=== PATIENT | male | born 1935 | race Caucasian/White ===

== ENCOUNTER 2016-11-25 07:06 | Emergency (ER) | payer MEDICARE ==
[2016-11-25 06:23] LABS: BASOPHILS 0.8 %; BASOPHILS ABSOLUTE 0.04 10/3/uL (0.0-0.16); EOSINOPHILS 1.9 %; ER CBC TAT 0 Hrs 06 MinsNP; HEMATOCRIT 39.9 % (40.0-51.0); HEMOGLOBIN 13.9 g/dL (13.6-17.8); IMMATURE GRANULOCYTES 0.2 %; IMMATURE GRANULOCYTES ABSOLUTE 0.01 10/3/uL (0.0-0.11); LYMPHOCYTES 19.8 %; LYMPHOCYTES ABSOLUTE 1.05 10/3/uL (0.67-4.30); MANUAL DIFF NO %; MEAN CORPUS HGB CONC 34.8 g/dL (32.0-36.0); MEAN CORPUSCULAR HEMOGLOB 31.8 pg (26.0-34.0); MEAN CORPUSCULAR VOLUME 91.3 fL (80-100); MEAN PLATELET VOLUME 9.1 fL (9.2-13.0); MONOCYTES 13.2 %; NEUTROPHILS 64.1 %; PLATELET COUNT 154 10/3/uL (150-400); RBC DISTRIBUTION WIDTH 13.6 % (12.0-16.0); RED CELL COUNT 4.37 10/6/uL (4.7-6.1); WHITE BLOOD CELLS 5.3 10/3/uL (4.5-10.5)
[2016-11-25 06:29] LABS: INTERNATIONAL NORMAL RATI 1.1 UNITS (-); PROTIME (NOT ORD) 14.3 SEC (12.0-14.5)
[2016-11-25 06:30] LABS: PARTIAL THROMBO TIME 26.2 SEC (22.5-37.2)
[2016-11-25 06:39] LABS: BUN (BLOOD UREA NITROGEN) 10 MG/DL (6-23); CALCIUM, SERUM 8.7 MG/DL (8.5-10.4); CHEST PAIN PROFILE TAT 0 Hrs 22 Mins; CHLORIDE, SERUM 111 MMOL/L (96-112); CO2 (CARBON DIOXIDE) 27 MMOL/L (24-34); CREATININE 1.21 MG/DL (0.70-1.30); GFR AFRICAN AMERICAN 64 ML/MIN (>=60); GFR NON AFRICAN AMERICAN 55 ML/MIN (>=60); GLUCOSE, SERUM 91 MG/DL (60-99); POTASSIUM, SERUM 3.5 MMOL/L (3.5-5.3); SODIUM, SERUM 144 MMOL/L (135-148); TROPONIN I <0.02 NG/ML (<0.05)
[~2016-11-25 07:06] MED LIST: 8 HOUR650 MG PO; ALLERGY REL1 OPH; ALLERGY RELIEF PO; ARICEPT10 PO; ASA5GR PO; ASAB PO; ASABAYER PO; ASAEC PO; ATEN25 PO; B121000P IJ; B121000P IM; B121000P SC; COQ-1010 MG OR; COQ10100 MG OR; COREG3 PO; COREG6 PO; CORTIZONE-101 % EX; CORTIZONE-101 % TOP; DHE1 OR; DIOVAN HCT160 MG/25 PO; FISH OIL OTC PO; FISH-EPA1000 MG PO; FLOMAX4 PO; FLORASTOR250 MG PO; HALF81 PO; IMDUR30 PO; IMOD PO; JOINT SUPPORT PO; KLONO5 PO; LEVSINTAB PO; LIPITOR40 PO; LISINOPRIL40 MG PO; MULTIPLE VIT PO; NEUR300 PO; NITROSTAT0.4 MG SL; OTC VITAMIN B-12 PO; OTC VITAMIN D3 PO; PEP20 PO; PREV30 PO; PRIN10 PO; PRIN20 PO; PROTONIX PO; QUESTRAN4 GM PO; RAPAFLO PO; RAPAFLO8 MG PO; REFRESH OP; REFRESH OPH; SINGULAIR1 PO; TYLENOL ARTH650 MG PO; UROXATRAL PO; VITAMIN B-12 PO; VITAMIN D31000 UNIT PO; VYTORIN 10/40 T1 TAB PO; ZANTAC 150 PO; ZANTAC150 MG PO; ZESTRIL10 MG PO; ZOL50 PO; ZOLOFT25 MG PO; ZYRTEC ALLGY10 MG PO; [UNRECOGNIZED DRUG - OTHER]; [UNRECOGNIZED DRUG - OTHER] PO; [UNRECOGNIZED DRUG - REMARK] OT; [UNRECOGNIZED DRUG - SUPPLY] TOP
== END 2016-11-25 07:12 | disposition home or self-care (01) ==
LOC: ER 07:06
PROVIDERS: Emergency Medicine
DX: R07.9 Chest pain, unspecified (principal); R10.9 Unspecified abdominal pain; E11.9 Type 2 diabetes mellitus without complications; K21.9 Gastro-esophageal reflux disease without esophagitis; Z95.5 Presence of coronary angioplasty implant and graft; Z95.1 Presence of aortocoronary bypass graft; I10 Essential (primary) hypertension; Z88.5 Allergy status to narcotic agent; Z88.8 Allergy status to other drugs, medicaments and biological substances; Z79.899 Other long term (current) drug therapy; Z79.82 Long term (current) use of aspirin
CPT/HCPCS: 71010; 80048; 83690; 83735; 84484; 85025; 85610; 85730; 93005; 99284